=== PATIENT | male | born 1960 | race Caucasian/White ===

== ENCOUNTER 2017-01-19 09:56 | Emergency (ER) | payer OTHER ==
--- NOTE | 2017-01-19 11:53 | ED CLINICAL REPORT ---
Clinical Report - Physicians/Mid Levels Located Within [facility] [address] [place] [address] 01/19/2017 9:58 Patient: RYAN BRIGHT Time Seen: 10:23. Arrived- By private vehicle. Historian- patient. HISTORY OF PRESENT ILLNESS Chief Complaint: DYSURIA. This started about 1 month ago and is still present and now worse. The problem is described as severe. It was gradual in onset and has been intermittent and waxing/waning. The patient has had discomfort with urination. The patient has had urinary frequency. No flank pain. The patient has not had an exposure to a sexually transmitted disease. Similar symptoms previously: Once. Diagnosis: Urinary Tract Infection and Cystitis. REVIEW OF SYSTEMS The patient has had measured temperature of 101 F with chills and sweating. No hematuria. All systems otherwise negative, except as recorded above. PAST HISTORY ( PCP Marcus Brock). Problems: Hyperlipidemia. Acute Pain. Cystitis. Prostatitis. Urinary Retention. Hypertension. Additional Surgeries: Hernia Repair. Medications: Lipitor Oral 40 mg, daily. Lisinopril Oral 40 mg, daily. Allergies: No Known Drug Allergy. SOCIAL HISTORY Never smoker. Occasional alcohol use. No drug use. Is a local resident. FAMILY HISTORY Heart disease in first-degree relative (mother); stroke in first-degree relative (mother). ADDITIONAL NOTES The nursing notes have been reviewed. PHYSICAL EXAM Vital Signs: 01/19/2017 10:00 BP: 158/89. HR: 98. RR: 20. O2 saturation: 97%. Temp: 100.7 F. Pain level now: 5/10. Have been reviewed. Appearance: Alert. No acute distress. ENT: Normal external inspection. Pharynx normal. Neck: Neck supple. CVS: Heart sounds normal. Respiratory: No respiratory distress. Breath sounds normal. Abdomen: Soft and nontender. Bowel sounds normal. No organomegaly. No mass. Back: Normal external inspection. No CVA tenderness. : Normal genitalia. Rectal: Moderately tender digital exam (with a boggy prostate). Skin: Skin warm and dry. Normal skin color. No rash. Normal skin turgor. Extremities: Extremities exhibit normal ROM. No calf tenderness. No lower extremity edema. LABS, X-RAYS, AND EKG Laboratory Tests: UA-Culture if indicated: (ALYSHA: 01/19/2017 10:20) ( MsgRcvd 01/19/2017 10:48) Final results Test Result Flag Units (Reference) URINE COLOR YELLOW URINE APPEARANCE CLEAR URINE GLUCOSE NEGATIVE (NEGATIVE) URINE BILIRUBIN NEGATIVE (NEGATIVE) URINE KETONE NEGATIVE (NEGATIVE) URINE SPECIFIC GRAVITY 1.010 (1.010-1.030) URINE PH 6.5 (5.0-8.0) URINE PROTEIN NEGATIVE (NEGATIVE) URINE UROBILINOGEN 0.2 EU/dL (0.2-1.0) URINE NITRITE NEGATIVE (NEGATIVE) URINE BLOOD NEGATIVE (NEGATIVE) URINE LEUK ESTERASE TRACE (NEGATIVE) URINE RBC NONE SEEN rbc/hpf (0-1) URINE WBC 25-50 wbc/hpf (0-1) URINE EPITHELIAL CELLS NONE SEEN EPI/hpf (0-5) URINE BACTERIA TRACE (<1+) (NONE SEEN) URINE COMMENT CULTURE INDICATED URINE CULTURES ARE SET-UP BASED ON THE FOLLOWING CRITERIA:POSITIVE NITRITEPOSITIVE LEUKOCYTE ESTERASEGREATER THAN 10 WHITE BLOOD CELLSMODERATE (2+) OR GREATER BACTERIA CBC w Diff: (ALYSHA: 01/19/2017 10:50) ( MsgRcvd 01/19/2017 11:12) Final results Test Result Flag Units (Reference) WHITE BLOOD COUNT 17.0 H K/uL (4.5-11.5) RED BLOOD COUNT 5.06 M/uL (4.50-5.90) HEMOGLOBIN 15.0 gm/dL (13.5-17.5) HEMATOCRIT 44.8 % (41.0-53.0) MEAN CELL VOLUME 89 fL (80-100) MEAN CORPUSCULAR HGB 30 pg (26-34) MEAN CORPUSCULAR HGB CONC 34 g/dL (31-37) RED CELL DISTRIBUTION WIDTH 12.2 % (11.6-14.8) PLATELET COUNT 321 K/uL (150-400) NEUTROPHIL % 88.8 H % (50-75) LYMPH % 7.9 L % (25-40) MONO % 3.0 % (3-14) EOSINOPHIL % 0.3 % (0-4) BASOPHIL % 0 % (0-2) CMP: (ALYSHA: 01/19/2017 10:50) ( MsgRcvd 01/19/2017 11:25) Final results Test Result Flag Units (Reference) GLUCOSE 116 H mg/dL (70-110) BUN 13 mg/dL (7-18) CREATININE 1.0 mg/dL (0.6-1.3) Estimated GFR >60 mL/min Estimated GFR- >60 mL/min Note: Persistent reduction over 3 months in eGFR<60 mL/min/1.73 m2 defines CKD. Patients with eGFR values>=60 mL/min/1.73 m2 may also have CKD if evidence ofpersistent proteinuria. Additional information may be foundat www.kidney.org. SODIUM 137 mmol/L (136-145) POTASSIUM 4.1 mmol/L (3.5-5.1) CHLORIDE 101 mmol/L (98-107) CARBON DIOXIDE 28 mmol/L (21-32) CALCIUM 9.4 mg/dL (8.5-10.1) TOTAL PROTEIN 7.7 g/dL (6.4-8.2) ALBUMIN 3.8 g/dL (3.3-5.0) BILIRUBIN, TOTAL 0.4 mg/dL (0.0-1.0) ALKALINE PHOSPHATASE 68 U/L (46-116) AST (SGOT) 17 U/L (15-37) ALT (SGPT) 38 U/L (12-78) LIPASE 153 U/L (73-393) AMYLASE 39 U/L (25-115) . PROGRESS AND PROCEDURES Course of Care: Patient is stable. Patient/family counseled. Old medical records reviewed. Disposition: Discharged. Condition: stable. CLINICAL IMPRESSION Acute urinary tract infection. Acute prostatitis. INSTRUCTIONS No driving or operating machinery while taking medication. Rest. Drink plenty of fluids. Warnings: Further evaluation is necessary. GENERAL WARNINGS: Return or contact your physician immediately if your condition worsens or changes unexpectedly, if not improving as expected, or if other problems arise. Prescription Medications: Cipro 500 mg: take 1 tab orally every 12 hours for 10 days. No refills. Substitution is permissible. (18 pills, start this prescription on 01/20/2017 to complete the course started in the emergency room.) Ultram 50 mg tablets: take 1-2 orally every 6 hours as needed for pain. Dispense twenty (20). No refills. Substitution is permissible. Follow-up: Follow up with a urologist- as recommended by your primary care physician. Call for an appointment. Understanding of the discharge instructions verbalized by patient. Follow-up with: Aleksandar Brock MD, Internal Medicine, , [facility] at [facility], [address] [place] [address] (Electronically signed by Elton Tovar MD 01/20/2017 11:15)
--- NOTE | 2017-01-19 11:53 | ED NURSING NOTES ---
Clinical Report - Nurses [facility] [address] [place] [address] 01/19/2017 9:58 Patient: RYAN BRIGHT TRIAGE Triage time 1002. Acuity: LEVEL 3. Chief Complaint: (pt in c/o "behind my balls" Pt has hx of cystitis and urinary retention. Also states that he had "milky looking urine" yesterday (only did it once )). 10:02. --10:18 Yuko Fisher R.N. 10:00 01/19/17. BP: 158/89. HR: 98. RR: 20. O2 saturation: 97%. Temp: 100.7 F. Pain level now: 01/01. --10:18 Yuko Fisher R.N. Weight: 104.3 kg stated. Height/Length: 69 inches Per Patient. BMI: 34. --10:12 Yuko Fisher R.N. Medications Lipitor Oral 40 mg, daily. Lisinopril Oral 40 mg, daily. --10:12 Yuko Fisher R.N. Allergies No Known Drug Allergy. --10:12 Yuko Fisher R.N. History Accompanied by (girlfriend). No primary care physician. ( pt states he is in today because of fever, headache and weakness). He has had testicular pain, and urgency of urination. SOCIAL HX: Never smoker. Occasional alcohol use. --10:18 Yuko Fisher R.N. PROBLEMS: Hyperlipidemia. Cystitis. Prostatitis. Urinary Retention. Hypertension. --10:11 Yuko Fisher R.N. ADDITIONAL SURGERIES: Hernia Repair. --10:11 Yuko Fisher R.N. Interventions ID band on patient. To treatment room. --10:18 Yuko Fisher R.N. PHYSICAL ASSESSMENT 10:00. Ambulatory to room. Patient gowned. GENERAL / NEURO / PSYCH: Alert. Oriented X 4. Appears in pain. RESPIRATORY: Respirations not labored. CVS: Capillary refill less than 2 seconds. GI / : The patient has had frequency of urination. Urgency of urination. Scrotal tenderness. SKIN: Skin is warm and dry. --10:17 Yuko Fisher R.N. NURSING PROGRESS NOTES 10:00. Patient gowned. Head of bed elevated. Reassurance given. Patient identifiers checked. Call light placed in reach. Side rails up. Bed placed in lowest position. Patient ready for evaluation- chart flagged. --10:16 Yuko Fisher R.N. 10:16. Patient ID band checked for patient name and birthdate: patient confirmed. Clean catch urine collected with return of yellow-colored urine; sample sent to lab for urinalysis and culture. Specimen labeled in the presence of the patient. --10:26 Yuko Fisher R.N. 11:17 01/19/2017 Started bag #1 1000 mL IV Fluids IV NS (Saline); bolus of 500 mL over 30 minute(s) then at 125 mL/hr over 4 hour(s) via site #1 via IV pump. IV patency established. IV site checked: no pain, redness, or swelling. IV flushed thoroughly pre- and post-medication administration. --11:32 Yuko Fisher R.N. 11:17 01/19/2017 One (1) unsuccessful IV access attempt (attempted by ALEXIS Weinberg). --11:32 Yuko Fisher R.N. 11:31 01/19/2017 Site #1 started via IV in the right hand with an 22g angiocath, with aseptic technique and good blood return; one attempt. Saline lock flushed with 10 mL saline (lab draw was sluggish, pt had vaso-vagal episode while doing IV. cool washcloth placed on head, pt layed flat on be). --11:31 Yuko Fisher R.N. 11:25. Patient ID band checked for patient name and birthdate: patient confirmed. Blood samples drawn by lab per protocol ; labeled in presence of the patient and sent to lab: rainbow set: blood culture (1st set). --11:33 Yuko Fisher R.N. 11:35 01/19/2017 Zofran (Ondansetron HCl) IVP 4 mg given over 1 minute(s) via site #1. IV patency established. IV site checked: no pain, redness, or swelling. IV flushed thoroughly pre- and post-medication administration. IVP given by RN. --12:46 Yuko Fisher R.N. 12:15 01/19/2017 Levaquin (Levofloxacin) PO Tablets 750 mg given. Allergies verified and confirmed 5 rights. --12:46 Yuko Fisher R.N. 12:20 01/19/2017 Site #1 removed upon discharge. Bandaid applied. --12:47 Yuko Fisher R.N. 12:20 01/19/2017 IV Fluids IV NS Discontinued: bag #1 STOPPED upon discharge. Total amount infused: 0 mL. IV patency established. IV site checked: no pain, redness, or swelling. IV flushed thoroughly. --12:47 Yuko Fisher R.N. 12:25 01/19/2017 Ibuprofen PO Tablets 800 mg given. Allergies verified and confirmed 5 rights. --12:48 Yuko Fisher R.N. 12:15 Pt given antibiotics po. --13:24 Yuko Fisher R.N. 12:20. ( IV dc'd. exit VS done. ERMD notified of temp and Motrin ordered and given.). --13:27 Yuko Fisher R.N. DISPOSITION / DISCHARGE 12:30. Condition at departure: stable. No learning barriers present. Discharge instructions provided and reviewed with the patient. Reviewed medication(s) (cipro, ultram for pain, motrin and tylenol for temp). Treatments reviewed (drink lots of fluids). Patient verbalized understanding. Written instructions provided in [place] Zealander. The patient was discharged home and accompanied by flatbed owner operator. He left the Emergency Department in a wheelchair and via private vehicle. Assistant Paralegal driving. --13:22 Yuko Fisher R.N. 12:30 01/19/17. BP: 127/70. HR: 110. RR: 18. O2 saturation: 96% on room air. Temp: 101.7 F. ED physician notified. Pain level now: 5/10. Additional comments: po motrin ordered by ERMGómez prior to pt discharge for temp . --13:22 PhillipYuko robison R.N. Locked/Released at 01/19/2017 13:28 by Yuko Fisher R.N.
--- NOTE | 2017-01-19 11:53 | ED NURSING NOTES ---
Clinical Report - Nurses [facility] [address] [place] [address] 01/19/2017 9:58 Patient: RYAN BRIGHT TRIAGE Triage time 1002. Acuity: LEVEL 3. Chief Complaint: (pt in c/o "behind my balls" Pt has hx of cystitis and urinary retention. Also states that he had "milky looking urine" yesterday (only did it once )). 10:02. --10:18 Yuko Fisher R.N. 10:00 01/19/17. BP: 158/89. HR: 98. RR: 20. O2 saturation: 97%. Temp: 100.7 F. Pain level now: 01/01. --10:18 Yuko Fisher R.N. Weight: 104.3 kg stated. Height/Length: 69 inches Per Patient. BMI: 34. --10:12 Yuko Fisher R.N. Medications Lipitor Oral 40 mg, daily. Lisinopril Oral 40 mg, daily. --10:12 Yuko Fisher R.N. Allergies No Known Drug Allergy. --10:12 Yuko Fisher R.N. History Accompanied by (girlfriend). No primary care physician. ( pt states he is in today because of fever, headache and weakness). He has had testicular pain, and urgency of urination. SOCIAL HX: Never smoker. Occasional alcohol use. --10:18 Yuko Fisher R.N. PROBLEMS: Hyperlipidemia. Cystitis. Prostatitis. Urinary Retention. Hypertension. --10:11 Yuko Fisher R.N. ADDITIONAL SURGERIES: Hernia Repair. --10:11 Yuko Fisher R.N. Interventions ID band on patient. To treatment room. --10:18 Yuko Fisher R.N. PHYSICAL ASSESSMENT 10:00. Ambulatory to room. Patient gowned. GENERAL / NEURO / PSYCH: Alert. Oriented X 4. Appears in pain. RESPIRATORY: Respirations not labored. CVS: Capillary refill less than 2 seconds. GI / : The patient has had frequency of urination. Urgency of urination. Scrotal tenderness. SKIN: Skin is warm and dry. --10:17 Yuko Fisher R.N. NURSING PROGRESS NOTES 10:00. Patient gowned. Head of bed elevated. Reassurance given. Patient identifiers checked. Call light placed in reach. Side rails up. Bed placed in lowest position. Patient ready for evaluation- chart flagged. --10:16 Yuko Fisher R.N. 10:16. Patient ID band checked for patient name and birthdate: patient confirmed. Clean catch urine collected with return of yellow-colored urine; sample sent to lab for urinalysis and culture. Specimen labeled in the presence of the patient. --10:26 Yuko Fisher R.N. 11:17 01/19/2017 Started bag #1 1000 mL IV Fluids IV NS (Saline); bolus of 500 mL over 30 minute(s) then at 125 mL/hr over 4 hour(s) via site #1 via IV pump. IV patency established. IV site checked: no pain, redness, or swelling. IV flushed thoroughly pre- and post-medication administration. --11:32 Yuko Fisher R.N. 11:17 01/19/2017 One (1) unsuccessful IV access attempt (attempted by ALEXIS Weinberg). --11:32 Yuko Fisher R.N. 11:31 01/19/2017 Site #1 started via IV in the right hand with an 22g angiocath, with aseptic technique and good blood return; one attempt. Saline lock flushed with 10 mL saline (lab draw was sluggish, pt had vaso-vagal episode while doing IV. cool washcloth placed on head, pt layed flat on be). --11:31 Yuko Fisher R.N. 11:25. Patient ID band checked for patient name and birthdate: patient confirmed. Blood samples drawn by lab per protocol ; labeled in presence of the patient and sent to lab: rainbow set: blood culture (1st set). --11:33 Yuko Fisher R.N. 11:35 01/19/2017 Zofran (Ondansetron HCl) IVP 4 mg given over 1 minute(s) via site #1. IV patency established. IV site checked: no pain, redness, or swelling. IV flushed thoroughly pre- and post-medication administration. IVP given by RN. --12:46 Yuko Fisher R.N. 12:15 01/19/2017 Levaquin (Levofloxacin) PO Tablets 750 mg given. Allergies verified and confirmed 5 rights. --12:46 Yuko Fisher R.N. 12:20 01/19/2017 Site #1 removed upon discharge. Bandaid applied. --12:47 Yuko Fisher R.N. 12:20 01/19/2017 IV Fluids IV NS Discontinued: bag #1 STOPPED upon discharge. Total amount infused: 0 mL. IV patency established. IV site checked: no pain, redness, or swelling. IV flushed thoroughly. --12:47 Yuko Fisher R.N. 12:25 01/19/2017 Ibuprofen PO Tablets 800 mg given. Allergies verified and confirmed 5 rights. --12:48 Yuko Fisher R.N. 12:15 Pt given antibiotics po. --13:24 Yuko Fisher R.N. 12:20. ( IV dc'd. exit VS done. ERMD notified of temp and Motrin ordered and given.). --13:27 Yuko Fisher R.N. DISPOSITION / DISCHARGE 12:30. Condition at departure: stable. No learning barriers present. Discharge instructions provided and reviewed with the patient. Reviewed medication(s) (cipro, ultram for pain, motrin and tylenol for temp). Treatments reviewed (drink lots of fluids). Patient verbalized understanding. Written instructions provided in [place]an. The patient was discharged home and accompanied by neuro urologist. He left the Emergency Department in a wheelchair and via private vehicle. Publisher Assistant driving. --13:22 Yuko Fisher R.N. 12:30 01/19/17. BP: 127/70. HR: 110. RR: 18. O2 saturation: 96% on room air. Temp: 101.7 F. ED physician notified. Pain level now: 5/10. Additional comments: po motrin ordered by ERMGómez prior to pt discharge for temp . --13:22 PhillipYuko robison R.N. Locked/Released at 01/19/2017 13:28 by Yuko Fisher R.N.
--- NOTE | 2017-01-19 11:53 | ED ORDER SUMMARY ---
..... Patient: RYAN BRIGHT OrderSheet [facility] VisitID: [id number] [address] [place] [address] 56y, M Registration Date/Time: 01/19/2017 ORDER SHEET Weight: 104.3 kg (stated) Allergies: No Known Drug Allergy GENERAL ORDERS: Blood Culture (No) (N/A) Urgent (10:01/19/2017 Leland GIL) (Ack 10:30 KHoerner) (11:26 KHoerner) CBC w Diff Urgent (10:01/19/2017 Leland GIL) (Ack 10:30 KHoerner) (11:26 KHoerner) CMP Urgent (:01/19/2017 Leland GIL) (Ack 10:30 KHoerner) (11:26 KHoerner) UA-Culture if indicated Urgent (10:01/19/2017 Leland GIL) (Ack 10:30 KHoerner) (11:26 KHoerner) Lactate, Serum Urgent (10:01/19/2017 Leland GIL) (Ack 10:30 KHoerner) (11:26 KHoerner) Amylase Urgent (:01/19/2017 Leland GIL) (Ack 10:30 KHoerner) (11:26 KHoerner) Lipase Urgent (10:01/19/2017 Leland GIL) (Ack 10:30 KHoerner) (11:26 KHoerner) MEDICATION ORDERS: Levaquin PO 750 mg (NOW) (11:49 01/19/2017 Leland GIL) (Ack 11:51 DDean R.N.) (12:46 DDean R.N.) Ibuprofen PO 800 mg (NOW) (12:48 01/19/2017 DDean R.N. verbal order read back to Leland GIL) (12:48 DDean R.N.) IV FLUIDS: IV NS : initial bolus 500 mL (1000 mL/hr), then 125 mL/hr for 4h (NOW); Urgent (10:01/19/2017 Leland GIL) (11:32 DDean R.N.) Zofran IV 4 mg (NOW) (11:48 01/19/2017 DDean R.N. per protocol) (Ack 11:49 DDean R.N.) (12:46 DDean R.N.) ORDER SHEET NOTES: [Electronically signed by Yuko Fisher R.N. (13:28 01/19/2017)] [Electronically signed by Elton Tovar MD (11:15 01/20/2017)] [Electronically locked/signed by Yuko Fisher R.N. (13:28 01/19/2017)]
--- NOTE | 2017-01-19 11:53 | ED CLINICAL REPORT ---
Clinical Report - Physicians/Mid Levels [facility] [address] [place] [address] 01/19/2017 9:58 Patient: RYAN BRIGHT Time Seen: 10:23. Arrived- By private vehicle. Historian- patient. HISTORY OF PRESENT ILLNESS Chief Complaint: DYSURIA. This started about 1 month ago and is still present and now worse. The problem is described as severe. It was gradual in onset and has been intermittent and waxing/waning. The patient has had discomfort with urination. The patient has had urinary frequency. No flank pain. The patient has not had an exposure to a sexually transmitted disease. Similar symptoms previously: Once. Diagnosis: Urinary Tract Infection and Cystitis. REVIEW OF SYSTEMS The patient has had measured temperature of 101 F with chills and sweating. No hematuria. All systems otherwise negative, except as recorded above. PAST HISTORY ( PCP Marcus Brock). Problems: Hyperlipidemia. Acute Pain. Cystitis. Prostatitis. Urinary Retention. Hypertension. Additional Surgeries: Hernia Repair. Medications: Lipitor Oral 40 mg, daily. Lisinopril Oral 40 mg, daily. Allergies: No Known Drug Allergy. SOCIAL HISTORY Never smoker. Occasional alcohol use. No drug use. Is a local resident. FAMILY HISTORY Heart disease in first-degree relative (mother); stroke in first-degree relative (mother). ADDITIONAL NOTES The nursing notes have been reviewed. PHYSICAL EXAM Vital Signs: 01/19/2017 10:00 BP: 158/89. HR: 98. RR: 20. O2 saturation: 97%. Temp: 100.7 F. Pain level now: 5/10. Have been reviewed. Appearance: Alert. No acute distress. ENT: Normal external inspection. Pharynx normal. Neck: Neck supple. CVS: Heart sounds normal. Respiratory: No respiratory distress. Breath sounds normal. Abdomen: Soft and nontender. Bowel sounds normal. No organomegaly. No mass. Back: Normal external inspection. No CVA tenderness. : Normal genitalia. Rectal: Moderately tender digital exam (with a boggy prostate). Skin: Skin warm and dry. Normal skin color. No rash. Normal skin turgor. Extremities: Extremities exhibit normal ROM. No calf tenderness. No lower extremity edema. LABS, X-RAYS, AND EKG Laboratory Tests: UA-Culture if indicated: (ALYSHA: 01/19/2017 10:20) ( MsgRcvd 01/19/2017 10:48) Final results Test Result Flag Units (Reference) URINE COLOR YELLOW URINE APPEARANCE CLEAR URINE GLUCOSE NEGATIVE (NEGATIVE) URINE BILIRUBIN NEGATIVE (NEGATIVE) URINE KETONE NEGATIVE (NEGATIVE) URINE SPECIFIC GRAVITY 1.010 (1.010-1.030) URINE PH 6.5 (5.0-8.0) URINE PROTEIN NEGATIVE (NEGATIVE) URINE UROBILINOGEN 0.2 EU/dL (0.2-1.0) URINE NITRITE NEGATIVE (NEGATIVE) URINE BLOOD NEGATIVE (NEGATIVE) URINE LEUK ESTERASE TRACE (NEGATIVE) URINE RBC NONE SEEN rbc/hpf (0-1) URINE WBC 25-50 wbc/hpf (0-1) URINE EPITHELIAL CELLS NONE SEEN EPI/hpf (0-5) URINE BACTERIA TRACE (<1+) (NONE SEEN) URINE COMMENT CULTURE INDICATED URINE CULTURES ARE SET-UP BASED ON THE FOLLOWING CRITERIA:POSITIVE NITRITEPOSITIVE LEUKOCYTE ESTERASEGREATER THAN 10 WHITE BLOOD CELLSMODERATE (2+) OR GREATER BACTERIA CBC w Diff: (ALYSHA: 01/19/2017 10:50) ( MsgRcvd 01/19/2017 11:12) Final results Test Result Flag Units (Reference) WHITE BLOOD COUNT 17.0 H K/uL (4.5-11.5) RED BLOOD COUNT 5.06 M/uL (4.50-5.90) HEMOGLOBIN 15.0 gm/dL (13.5-17.5) HEMATOCRIT 44.8 % (41.0-53.0) MEAN CELL VOLUME 89 fL (80-100) MEAN CORPUSCULAR HGB 30 pg (26-34) MEAN CORPUSCULAR HGB CONC 34 g/dL (31-37) RED CELL DISTRIBUTION WIDTH 12.2 % (11.6-14.8) PLATELET COUNT 321 K/uL (150-400) NEUTROPHIL % 88.8 H % (50-75) LYMPH % 7.9 L % (25-40) MONO % 3.0 % (3-14) EOSINOPHIL % 0.3 % (0-4) BASOPHIL % 0 % (0-2) CMP: (ALYSHA: 01/19/2017 10:50) ( MsgRcvd 01/19/2017 11:25) Final results Test Result Flag Units (Reference) GLUCOSE 116 H mg/dL (70-110) BUN 13 mg/dL (7-18) CREATININE 1.0 mg/dL (0.6-1.3) Estimated GFR >60 mL/min Estimated GFR- >60 mL/min Note: Persistent reduction over 3 months in eGFR<60 mL/min/1.73 m2 defines CKD. Patients with eGFR values>=60 mL/min/1.73 m2 may also have CKD if evidence ofpersistent proteinuria. Additional information may be foundat www.kidney.org. SODIUM 137 mmol/L (136-145) POTASSIUM 4.1 mmol/L (3.5-5.1) CHLORIDE 101 mmol/L (98-107) CARBON DIOXIDE 28 mmol/L (21-32) CALCIUM 9.4 mg/dL (8.5-10.1) TOTAL PROTEIN 7.7 g/dL (6.4-8.2) ALBUMIN 3.8 g/dL (3.3-5.0) BILIRUBIN, TOTAL 0.4 mg/dL (0.0-1.0) ALKALINE PHOSPHATASE 68 U/L (46-116) AST (SGOT) 17 U/L (15-37) ALT (SGPT) 38 U/L (12-78) LIPASE 153 U/L (73-393) AMYLASE 39 U/L (25-115) . PROGRESS AND PROCEDURES Course of Care: Patient is stable. Patient/family counseled. Old medical records reviewed. Disposition: Discharged. Condition: stable. CLINICAL IMPRESSION Acute urinary tract infection. Acute prostatitis. INSTRUCTIONS No driving or operating machinery while taking medication. Rest. Drink plenty of fluids. Warnings: Further evaluation is necessary. GENERAL WARNINGS: Return or contact your physician immediately if your condition worsens or changes unexpectedly, if not improving as expected, or if other problems arise. Prescription Medications: Cipro 500 mg: take 1 tab orally every 12 hours for 10 days. No refills. Substitution is permissible. (18 pills, start this prescription on 01/20/2017 to complete the course started in the emergency room.) Ultram 50 mg tablets: take 1-2 orally every 6 hours as needed for pain. Dispense twenty (20). No refills. Substitution is permissible. Follow-up: Follow up with a urologist- as recommended by your primary care physician. Call for an appointment. Understanding of the discharge instructions verbalized by patient. Follow-up with: Aleksandar Brock MD, Internal Medicine, , [facility], [address] [place] [address] (Electronically signed by Elton Tovar MD 01/20/2017 11:15)
--- NOTE | 2017-01-19 11:53 | ED ORDER SUMMARY ---
..... Patient: RYAN BRIGHT OrderSheet [facility] VisitID: [id number] [address] [place] [address] 56y, M Registration Date/Time: 01/19/2017 ORDER SHEET Weight: 104.3 kg (stated) Allergies: No Known Drug Allergy GENERAL ORDERS: Blood Culture (No) (N/A) Urgent (10:01/19/2017 Leland GIL) (Ack 10:30 KHoerner) (11:26 KHoerner) CBC w Diff Urgent (10:01/19/2017 Leland GIL) (Ack 10:30 KHoerner) (11:26 KHoerner) CMP Urgent (:01/19/2017 Leland GIL) (Ack 10:30 KHoerner) (11:26 KHoerner) UA-Culture if indicated Urgent (10:01/19/2017 Leland GIL) (Ack 10:30 KHoerner) (11:26 KHoerner) Lactate, Serum Urgent (10:01/19/2017 Leland GIL) (Ack 10:30 KHoerner) (11:26 KHoerner) Amylase Urgent (:01/19/2017 Leland GIL) (Ack 10:30 KHoerner) (11:26 KHoerner) Lipase Urgent (10:01/19/2017 Leland GIL) (Ack 10:30 KHoerner) (11:26 KHoerner) MEDICATION ORDERS: Levaquin PO 750 mg (NOW) (11:49 01/19/2017 Leland GIL) (Ack 11:51 DDean R.N.) (12:46 DDean R.N.) Ibuprofen PO 800 mg (NOW) (12:48 01/19/2017 DDean R.N. verbal order read back to Leland GIL) (12:48 DDean R.N.) IV FLUIDS: IV NS : initial bolus 500 mL (1000 mL/hr), then 125 mL/hr for 4h (NOW); Urgent (10:01/19/2017 Leland GIL) (11:32 DDean R.N.) Zofran IV 4 mg (NOW) (11:48 01/19/2017 DDean R.N. per protocol) (Ack 11:49 DDean R.N.) (12:46 DDean R.N.) ORDER SHEET NOTES: [Electronically signed by Yuko Fisher R.N. (13:28 01/19/2017)] [Electronically signed by Elton Tovar MD (11:15 01/20/2017)] [Electronically locked/signed by Yuko Fisher R.N. (13:28 01/19/2017)]
--- NOTE | 2017-01-20 11:16 | ED DISCHARGE INSTRUCTIONS ---
Patient: RYAN BRIGHT General Instructions [facility] VisitID: [id number] [place] [address] 56y, M Registration Date/Time: 01/19/2017 Acute urinary tract infection. Acute prostatitis. INSTRUCTIONS No driving or operating machinery while taking medication. Rest. Drink plenty of fluids. Warnings: Further evaluation is necessary. GENERAL WARNINGS: Return or contact your physician immediately if your condition worsens or changes unexpectedly, if not improving as expected, or if other problems arise. Prescription Medications: Cipro 500 mg: take 1 tab orally every 12 hours for 10 days. No refills. Substitution is permissible. (18 pills, start this prescription on 01/20/2017 to complete the course started in the emergency room.) Ultram 50 mg tablets: take 1-2 orally every 6 hours as needed for pain. Dispense twenty (20). No refills. Substitution is permissible. Follow-up: Follow up with a urologist- as recommended by your primary care physician. Call for an appointment. Understanding of the discharge instructions verbalized by patient. Follow-up with: Aleksandar Brock MD, Internal Medicine, , [facility], [address] [place] [address] ADDITIONAL INFORMATION Bladder Infection,Male (Adult) A bladder infection ("cystitis" or "UTI") usually causes a constant urge to urinate, and a burning when passing urine. Urine may be cloudy, smelly or dark. There may be also be pain in the lower abdomen. Cystitis in males is not common. It may be caused by a partial blockage in the urinary system that keeps the bladder from emptying completely. This is most often related to an enlarged prostate gland. Home Care: Drink lots of fluids (at least 6-8 glasses a day). This will flush the bacteria out of your bladder. Avoid sexual intercourse until your symptoms are gone. Avoid caffeine, alcohol, and spicy foods. They could irritate the bladder. A bladder infection is treated with antibiotics. You may also be given Pyridium (generic - phenazopyridine) to reduce burning with urination. This will cause urine to become a bright orange color, which can stain clothing. Follow Up with your doctor or this facility if ALL symptoms have not cleared within five days. It is important to keep your follow up appointment to discuss with your doctor the need for further tests of the urinary tract. Get Prompt Medical Attention if any of the following occur: Fever of 100.4F (38C) or higher, or as directed by your healthcare provider No improvement by the third day of treatment Increasing back or abdominal pain Repeated vomiting; unable to keep medicine down Weakness, dizziness or fainting Ciprofloxacin Hydrochloride Oral tablet What is this medicine? CIPROFLOXACIN (sip eric FLOX a sin) is a quinolone antibiotic. It is used to treat certain kinds of bacterial infections. It will not work for colds, flu, or other viral infections. How should I use this medicine? Take this medicine by mouth with a glass of water. Follow the directions on the prescription label. Take your medicine at regular intervals. Do not take your medicine more often than directed. Take all of your medicine as directed even if you think your are better. Do not skip doses or stop your medicine early. You can take this medicine with food or on an empty stomach. It can be taken with a meal that contains dairy or calcium, but do not take it alone with a dairy product, like milk or yogurt or calcium-fortified juice. A special MedGuide will be given to you by the pharmacist with each prescription and refill. Be sure to read this information carefully each time. Talk to your securities attorney regarding the use of this medicine in children. Special care may be needed. What side effects may I notice from receiving this medicine? Side effects that you should report to your doctor or health home health caregiver as soon as possible: - allergic reactions like skin rash, itching or hives, swelling of the face, lips, or tongue - breathing problems - confusion, nightmares or hallucinations - feeling faint or lightheaded, falls - irregular heartbeat - joint, muscle or tendon pain or swelling - pain or trouble passing urine -persistent headache with or without blurred vision - redness, blistering, peeling or loosening of the skin, including inside the mouth - seizure - unusual pain, numbness, tingling, or weakness Side effects that usually do not require medical attention (report to your doctor or health home health caregiver if they continue or are bothersome): - diarrhea - nausea or stomach upset - white patches or sores in the mouth What may interact with this medicine? Do not take this medicine with any of the following medications: cisapride droperidol terfenadine tizanidine This medicine may also interact with the following medications: antacids caffeine cyclosporin didanosine (ddI) buffered tablets or powder medicines for diabetes medicines for inflammation like ibuprofen, naproxen methotrexate multivitamins omeprazole phenytoin probenecid sucralfate theophylline warfarin What if I miss a dose? If you miss a dose, take it as soon as you can. If it is almost time for your next dose, take only that dose. Do not take double or extra doses. Where should I keep my medicine? Keep out of the reach of children. Store at room temperature below 30 degrees C (86 degrees F). Keep container tightly closed. Throw away any unused medicine after the expiration date. What should I tell my health care provider before I take this medicine? They need to know if you have any of these conditions: -bone problems -cerebral disease -joint problems -irregular heartbeat -kidney disease -liver disease -myasthenia gravis -seizure disorder -tendon problems -an unusual or allergic reaction to ciprofloxacin, other antibiotics or medicines, foods, dyes, or preservatives - or trying to get -breast-feeding What should I watch for while using this medicine? Tell your doctor or health home health caregiver if your symptoms do not improve. Do not treat diarrhea with over the counter products. Contact your doctor if you have diarrhea that lasts more than 2 days or if it is severe and watery. You may get drowsy or dizzy. Do not drive, use machinery, or do anything that needs mental alertness until you know how this medicine affects you. Do not stand or sit up quickly, especially if you are an older patient. This reduces the risk of dizzy or fainting spells. This medicine can make you more sensitive to the sun. Keep out of the sun. If you cannot avoid being in the sun, wear protective clothing and use sunscreen. Do not use sun lamps or tanning beds/booths. Avoid antacids, aluminum, calcium, iron, magnesium, and zinc products for 6 hours before and 2 hours after taking a dose of this medicine. Tramadol Hydrochloride Oral tablet What is this medicine? TRAMADOL (TRA ma dole) is a pain reliever. It is used to treat moderate to severe pain in adults. How should I use this medicine? Take this medicine by mouth with a full glass of water. Follow the directions on the prescription label. If the medicine upsets your stomach, take it with food or milk. Do not take more medicine than you are told to take. Talk to your securities attorney regarding the use of this medicine in children. Special care may be needed. What side effects may I notice from receiving this medicine? Side effects that you should report to your doctor or health home health caregiver as soon as possible: allergic reactions like skin rash, itching or hives, swelling of the face, lips, or tongue breathing difficulties, wheezing confusion itching light headedness or fainting spells redness, blistering, peeling or loosening of the skin, including inside the mouth seizures Side effects that usually do not require medical attention (report to your doctor or health home health caregiver if they continue or are bothersome): constipation dizziness drowsiness headache nausea, vomiting What may interact with this medicine? Do not take this medicine with any of the following medications: MAOIs like Carbex, Eldepryl, Marplan, Nardil, and Parnate This medicine may also interact with the following medications: alcohol or medicines that contain alcohol antihistamines benzodiazepines bupropion carbamazepine or oxcarbazepine clozapine cyclobenzaprine digoxin furazolidone linezolid medicines for depression, anxiety, or psychotic disturbances medicines for migraine headache like almotriptan, eletriptan, frovatriptan, naratriptan, rizatriptan, sumatriptan, zolmitriptan medicines for pain like pentazocine, buprenorphine, butorphanol, meperidine, nalbuphine, and propoxyphene medicines for sleep muscle relaxants naltrexone phenobarbital phenothiazines like perphenazine, thioridazine, chlorpromazine, mesoridazine, fluphenazine, prochlorperazine, promazine, and trifluoperazine procarbazine warfarin What if I miss a dose? If you miss a dose, take it as soon as you can. If it is almost time for your next dose, take only that dose. Do not take double or extra doses. Where should I keep my medicine? Keep out of the reach of children. Store at room temperature between 15 and 30 degrees C (59 and 86 degrees F). Keep container tightly closed. Throw away any unused medicine after the expiration date. What should I tell my health care provider before I take this medicine? They need to know if you have any of these conditions: brain tumor depression drug abuse or addiction head injury if you frequently drink alcohol containing drinks kidney disease or trouble passing urine liver disease lung disease, asthma, or breathing problems seizures or epilepsy suicidal thoughts, plans, or attempt; a previous suicide attempt by you or a family member an unusual or allergic reaction to tramadol, codeine, other medicines, foods, dyes, or preservatives or trying to get breast-feeding What should I watch for while using this medicine? Tell your doctor or health home health caregiver if your pain does not go away, if it gets worse, or if you have new or a different type of pain. You may develop tolerance to the medicine. Tolerance means that you will need a higher dose of the medicine for pain relief. Tolerance is normal and is expected if you take this medicine for a long time. Do not suddenly stop taking your medicine because you may develop a severe reaction. Your body becomes used to the medicine. This does NOT mean you are addicted. Addiction is a behavior related to getting and using a drug for a non-medical reason. If you have pain, you have a medical reason to take pain medicine. Your doctor will tell you how much medicine to take. If your doctor wants you to stop the medicine, the dose will be slowly lowered over time to avoid any side effects. You may get drowsy or dizzy. Do not drive, use machinery, or do anything that needs mental alertness until you know how this medicine affects you. Do not stand or sit up quickly, especially if you are an older patient. This reduces the risk of dizzy or fainting spells. Alcohol can increase or decrease the effects of this medicine. Avoid alcoholic drinks. You may have constipation. Try to have a bowel movement at least every 2 to 3 days. If you do not have a bowel movement for 3 days, call your doctor or health home health caregiver. Your mouth may get dry. Chewing sugarless gum or sucking hard candy, and drinking plenty of water may help. Contact your doctor if the problem does not go away or is severe. You have been given the following additional information: Bladder Infection, Male (Adult) Ciprofloxacin Hydrochloride Oral tablet Tramadol Hydrochloride Oral tablet No driving or operating machinery while taking medication. Rest. (Electronically signed by Elton Tovar MD 01/20/2017 11:15)
--- NOTE | 2017-01-20 11:16 | ED MED RECONCILIATION SUMMARY ---
Patient: RYAN BRIGHT Medication Reconciliation Report [facility] VisitID: [id number] [address] [place] [address] 56y, M Registration Date/Time: 01/19/2017 Weight: 104.3 kg Height/Length: 69 in. BMI: 34.0 ALLERGIES: No Known Drug Allergy The patient's Home Medications are listed below: THE FOLLOWING MEDICATIONS NEED TO BE RECONCILED: Lipitor Oral 40 mg, daily Lisinopril Oral 40 mg, daily The source(s) of the original Home Medication information: Not obtained. The following Medications were given to the patient in the Emergency Department: IV NS IV Fluids bolus 500 mL over 30 minute(s), then 125 mL/hr, administered: 01/19/2017 11:17:00 AM Zofran [IVP] IVP 4 mg, administered: 01/19/2017 11:35:00 AM Levaquin [PO] PO 750 mg, administered: 01/19/2017 12:15:00 PM Ibuprofen [PO] PO 800 mg, administered: 01/19/2017 12:25:00 PM The following Medications were prescribed to the patient: Cipro 500 mg: take 1 tab orally every 12 hours for 10 days. No refills. Substitution is permissible.(18 pills, start this prescription on 01/20/2017 to complete the course started in the emergency room.) -- Elton Tovar MD Ultram 50 mg tablets: take 1-2 orally every 6 hours as needed for pain. Dispense twenty (20). No refills. Substitution is permissible. -- Elton Tovar MD
--- NOTE | 2017-01-20 11:16 | ED MED RECONCILIATION SUMMARY ---
Patient: RYAN BRIGHT Medication Reconciliation Report [facility] VisitID: [id number] [address] [place] [address] 56y, M Registration Date/Time: 01/19/2017 Weight: 104.3 kg Height/Length: 69 in. BMI: 34.0 ALLERGIES: No Known Drug Allergy The patient's Home Medications are listed below: THE FOLLOWING MEDICATIONS NEED TO BE RECONCILED: Lipitor Oral 40 mg, daily Lisinopril Oral 40 mg, daily The source(s) of the original Home Medication information: Not obtained. The following Medications were given to the patient in the Emergency Department: IV NS IV Fluids bolus 500 mL over 30 minute(s), then 125 mL/hr, administered: 01/19/2017 11:17:00 AM Zofran [IVP] IVP 4 mg, administered: 01/19/2017 11:35:00 AM Levaquin [PO] PO 750 mg, administered: 01/19/2017 12:15:00 PM Ibuprofen [PO] PO 800 mg, administered: 01/19/2017 12:25:00 PM The following Medications were prescribed to the patient: Cipro 500 mg: take 1 tab orally every 12 hours for 10 days. No refills. Substitution is permissible.(18 pills, start this prescription on 01/20/2017 to complete the course started in the emergency room.) -- Elton Tovar MD Ultram 50 mg tablets: take 1-2 orally every 6 hours as needed for pain. Dispense twenty (20). No refills. Substitution is permissible. -- Elton Tovar MD
--- NOTE | 2017-01-20 11:16 | ED MAR SUMMARY ---
..... Medication Administration Record [facility] [address] [place] [address] Patient: RYAN BRIGHT Visit ID: [id number] 56y, M Weight: 104.3 kg Height/Length: 69 in BMI: 34 ALLERGIES: No Known Drug Allergy Start 11:17 01/19/2017 Yuko Fisher R.N., Stop 12:20 01/19/2017 Yuko Fisher R.N. Medication Administered: IV NS (SALINE), Dose: IV Fluids over 4 hour(s), Rate: 125 mL/hr, Bolus: 500 mL over 30 minute(s), Dispensed: 1000 mL bag, Site: #1. Medication Ordered: IV NS : initial bolus 500 mL (1000 mL/hr), then 125 mL/hr for 4h (NOW); Urgent. Given 11:35 01/19/2017 Yuko Fisher R.N. Medication Administered: ZOFRAN [IVP] (ONDANSETRON HCL), Dose: 4 mg IVP over 1 minute(s), Site: #1 right hand. Medication Ordered: Zofran IV 4 mg (NOW). Given 12:15 01/19/2017 Yuko Fisher R.N. Medication Administered: LEVAQUIN [PO] (LEVOFLOXACIN), Dose: 750 mg Tablets PO. Medication Ordered: Levaquin PO 750 mg (NOW). Given 12:25 01/19/2017 Yuko Fisher R.N. Medication Administered: IBUPROFEN [PO], Dose: 800 mg Tablets PO. Medication Ordered: Ibuprofen PO 800 mg (NOW).
--- NOTE | 2017-01-20 11:16 | ED MAR SUMMARY ---
..... Medication Administration Record [facility] [address] [place] [address] Patient: RYAN BRIGHT Visit ID: [id number] 56y, M Weight: 104.3 kg Height/Length: 69 in BMI: 34 ALLERGIES: No Known Drug Allergy Start 11:17 01/19/2017 Yuko Fisher R.N., Stop 12:20 01/19/2017 Yuko Fisher R.N. Medication Administered: IV NS (SALINE), Dose: IV Fluids over 4 hour(s), Rate: 125 mL/hr, Bolus: 500 mL over 30 minute(s), Dispensed: 1000 mL bag, Site: #1. Medication Ordered: IV NS : initial bolus 500 mL (1000 mL/hr), then 125 mL/hr for 4h (NOW); Urgent. Given 11:35 01/19/2017 Yuko Fisher R.N. Medication Administered: ZOFRAN [IVP] (ONDANSETRON HCL), Dose: 4 mg IVP over 1 minute(s), Site: #1 right hand. Medication Ordered: Zofran IV 4 mg (NOW). Given 12:15 01/19/2017 Yuko Fisher R.N. Medication Administered: LEVAQUIN [PO] (LEVOFLOXACIN), Dose: 750 mg Tablets PO. Medication Ordered: Levaquin PO 750 mg (NOW). Given 12:25 01/19/2017 Yuko Fisher R.N. Medication Administered: IBUPROFEN [PO], Dose: 800 mg Tablets PO. Medication Ordered: Ibuprofen PO 800 mg (NOW).
--- NOTE | 2017-01-20 11:16 | ED DISCHARGE INSTRUCTIONS ---
Patient: RYAN BRIGHT General Instructions [facility] VisitID: [id number] [place] [address] 56y, M Registration Date/Time: 01/19/2017 Acute urinary tract infection. Acute prostatitis. INSTRUCTIONS No driving or operating machinery while taking medication. Rest. Drink plenty of fluids. Warnings: Further evaluation is necessary. GENERAL WARNINGS: Return or contact your physician immediately if your condition worsens or changes unexpectedly, if not improving as expected, or if other problems arise. Prescription Medications: Cipro 500 mg: take 1 tab orally every 12 hours for 10 days. No refills. Substitution is permissible. (18 pills, start this prescription on 01/20/2017 to complete the course started in the emergency room.) Ultram 50 mg tablets: take 1-2 orally every 6 hours as needed for pain. Dispense twenty (20). No refills. Substitution is permissible. Follow-up: Follow up with a urologist- as recommended by your primary care physician. Call for an appointment. Understanding of the discharge instructions verbalized by patient. Follow-up with: Aleksandar Brock MD, Internal Medicine, , [facility], [address] [place] [address] ADDITIONAL INFORMATION Bladder Infection,Male (Adult) A bladder infection ("cystitis" or "UTI") usually causes a constant urge to urinate, and a burning when passing urine. Urine may be cloudy, smelly or dark. There may be also be pain in the lower abdomen. Cystitis in males is not common. It may be caused by a partial blockage in the urinary system that keeps the bladder from emptying completely. This is most often related to an enlarged prostate gland. Home Care: Drink lots of fluids (at least 6-8 glasses a day). This will flush the bacteria out of your bladder. Avoid sexual intercourse until your symptoms are gone. Avoid caffeine, alcohol, and spicy foods. They could irritate the bladder. A bladder infection is treated with antibiotics. You may also be given Pyridium (generic - phenazopyridine) to reduce burning with urination. This will cause urine to become a bright orange color, which can stain clothing. Follow Up with your doctor or this facility if ALL symptoms have not cleared within five days. It is important to keep your follow up appointment to discuss with your doctor the need for further tests of the urinary tract. Get Prompt Medical Attention if any of the following occur: Fever of 100.4F (38C) or higher, or as directed by your healthcare provider No improvement by the third day of treatment Increasing back or abdominal pain Repeated vomiting; unable to keep medicine down Weakness, dizziness or fainting Ciprofloxacin Hydrochloride Oral tablet What is this medicine? CIPROFLOXACIN (sip eric FLOX a sin) is a quinolone antibiotic. It is used to treat certain kinds of bacterial infections. It will not work for colds, flu, or other viral infections. How should I use this medicine? Take this medicine by mouth with a glass of water. Follow the directions on the prescription label. Take your medicine at regular intervals. Do not take your medicine more often than directed. Take all of your medicine as directed even if you think your are better. Do not skip doses or stop your medicine early. You can take this medicine with food or on an empty stomach. It can be taken with a meal that contains dairy or calcium, but do not take it alone with a dairy product, like milk or yogurt or calcium-fortified juice. A special MedGuide will be given to you by the pharmacist with each prescription and refill. Be sure to read this information carefully each time. Talk to your home worker regarding the use of this medicine in children. Special care may be needed. What side effects may I notice from receiving this medicine? Side effects that you should report to your doctor or health long term care phlebotomist as soon as possible: - allergic reactions like skin rash, itching or hives, swelling of the face, lips, or tongue - breathing problems - confusion, nightmares or hallucinations - feeling faint or lightheaded, falls - irregular heartbeat - joint, muscle or tendon pain or swelling - pain or trouble passing urine -persistent headache with or without blurred vision - redness, blistering, peeling or loosening of the skin, including inside the mouth - seizure - unusual pain, numbness, tingling, or weakness Side effects that usually do not require medical attention (report to your doctor or health long term care phlebotomist if they continue or are bothersome): - diarrhea - nausea or stomach upset - white patches or sores in the mouth What may interact with this medicine? Do not take this medicine with any of the following medications: cisapride droperidol terfenadine tizanidine This medicine may also interact with the following medications: antacids caffeine cyclosporin didanosine (ddI) buffered tablets or powder medicines for diabetes medicines for inflammation like ibuprofen, naproxen methotrexate multivitamins omeprazole phenytoin probenecid sucralfate theophylline warfarin What if I miss a dose? If you miss a dose, take it as soon as you can. If it is almost time for your next dose, take only that dose. Do not take double or extra doses. Where should I keep my medicine? Keep out of the reach of children. Store at room temperature below 30 degrees C (86 degrees F). Keep container tightly closed. Throw away any unused medicine after the expiration date. What should I tell my health care provider before I take this medicine? They need to know if you have any of these conditions: -bone problems -cerebral disease -joint problems -irregular heartbeat -kidney disease -liver disease -myasthenia gravis -seizure disorder -tendon problems -an unusual or allergic reaction to ciprofloxacin, other antibiotics or medicines, foods, dyes, or preservatives - or trying to get -breast-feeding What should I watch for while using this medicine? Tell your doctor or health long term care phlebotomist if your symptoms do not improve. Do not treat diarrhea with over the counter products. Contact your doctor if you have diarrhea that lasts more than 2 days or if it is severe and watery. You may get drowsy or dizzy. Do not drive, use machinery, or do anything that needs mental alertness until you know how this medicine affects you. Do not stand or sit up quickly, especially if you are an older patient. This reduces the risk of dizzy or fainting spells. This medicine can make you more sensitive to the sun. Keep out of the sun. If you cannot avoid being in the sun, wear protective clothing and use sunscreen. Do not use sun lamps or tanning beds/booths. Avoid antacids, aluminum, calcium, iron, magnesium, and zinc products for 6 hours before and 2 hours after taking a dose of this medicine. Tramadol Hydrochloride Oral tablet What is this medicine? TRAMADOL (TRA ma dole) is a pain reliever. It is used to treat moderate to severe pain in adults. How should I use this medicine? Take this medicine by mouth with a full glass of water. Follow the directions on the prescription label. If the medicine upsets your stomach, take it with food or milk. Do not take more medicine than you are told to take. Talk to your home worker regarding the use of this medicine in children. Special care may be needed. What side effects may I notice from receiving this medicine? Side effects that you should report to your doctor or health long term care phlebotomist as soon as possible: allergic reactions like skin rash, itching or hives, swelling of the face, lips, or tongue breathing difficulties, wheezing confusion itching light headedness or fainting spells redness, blistering, peeling or loosening of the skin, including inside the mouth seizures Side effects that usually do not require medical attention (report to your doctor or health long term care phlebotomist if they continue or are bothersome): constipation dizziness drowsiness headache nausea, vomiting What may interact with this medicine? Do not take this medicine with any of the following medications: MAOIs like Carbex, Eldepryl, Marplan, Nardil, and Parnate This medicine may also interact with the following medications: alcohol or medicines that contain alcohol antihistamines benzodiazepines bupropion carbamazepine or oxcarbazepine clozapine cyclobenzaprine digoxin furazolidone linezolid medicines for depression, anxiety, or psychotic disturbances medicines for migraine headache like almotriptan, eletriptan, frovatriptan, naratriptan, rizatriptan, sumatriptan, zolmitriptan medicines for pain like pentazocine, buprenorphine, butorphanol, meperidine, nalbuphine, and propoxyphene medicines for sleep muscle relaxants naltrexone phenobarbital phenothiazines like perphenazine, thioridazine, chlorpromazine, mesoridazine, fluphenazine, prochlorperazine, promazine, and trifluoperazine procarbazine warfarin What if I miss a dose? If you miss a dose, take it as soon as you can. If it is almost time for your next dose, take only that dose. Do not take double or extra doses. Where should I keep my medicine? Keep out of the reach of children. Store at room temperature between 15 and 30 degrees C (59 and 86 degrees F). Keep container tightly closed. Throw away any unused medicine after the expiration date. What should I tell my health care provider before I take this medicine? They need to know if you have any of these conditions: brain tumor depression drug abuse or addiction head injury if you frequently drink alcohol containing drinks kidney disease or trouble passing urine liver disease lung disease, asthma, or breathing problems seizures or epilepsy suicidal thoughts, plans, or attempt; a previous suicide attempt by you or a family member an unusual or allergic reaction to tramadol, codeine, other medicines, foods, dyes, or preservatives or trying to get breast-feeding What should I watch for while using this medicine? Tell your doctor or health long term care phlebotomist if your pain does not go away, if it gets worse, or if you have new or a different type of pain. You may develop tolerance to the medicine. Tolerance means that you will need a higher dose of the medicine for pain relief. Tolerance is normal and is expected if you take this medicine for a long time. Do not suddenly stop taking your medicine because you may develop a severe reaction. Your body becomes used to the medicine. This does NOT mean you are addicted. Addiction is a behavior related to getting and using a drug for a non-medical reason. If you have pain, you have a medical reason to take pain medicine. Your doctor will tell you how much medicine to take. If your doctor wants you to stop the medicine, the dose will be slowly lowered over time to avoid any side effects. You may get drowsy or dizzy. Do not drive, use machinery, or do anything that needs mental alertness until you know how this medicine affects you. Do not stand or sit up quickly, especially if you are an older patient. This reduces the risk of dizzy or fainting spells. Alcohol can increase or decrease the effects of this medicine. Avoid alcoholic drinks. You may have constipation. Try to have a bowel movement at least every 2 to 3 days. If you do not have a bowel movement for 3 days, call your doctor or health long term care phlebotomist. Your mouth may get dry. Chewing sugarless gum or sucking hard candy, and drinking plenty of water may help. Contact your doctor if the problem does not go away or is severe. You have been given the following additional information: Bladder Infection, Male (Adult) Ciprofloxacin Hydrochloride Oral tablet Tramadol Hydrochloride Oral tablet No driving or operating machinery while taking medication. Rest. (Electronically signed by Elton Tovar MD 01/20/2017 11:15)
== END 2017-01-19 12:30 | disposition home or self-care (01) ==
LOC: ED SRH 09:56
DX: N39.0 Urinary tract infection, site not specified (principal); N41.0 Acute prostatitis; I10 Essential (primary) hypertension; Z79.899 Other long term (current) drug therapy
CPT/HCPCS: 90004; 90065; 90070; 90074; 90100; 90148; 90469; 91672; 92031; 92235; 92530; 95059